=== PATIENT | male | born 1985 | race Caucasian/White ===

== ENCOUNTER 2016-12-21 21:37 | Emergency (ER) | payer OTHER ==
[2016-12-21 21:49] VITALS: BP 129/67
[2016-12-21] MEDS ORDERED: Albuterol HFA INHALER* 8 gm MDI INH ONE (22:11)
--- NOTE | 2016-12-21 22:11 | UC ---
Abdominal Pain Male HPI - HPI Summary HPI Summary: 31 yo male with a 2 day hx of n/v/d has been wheezing out of MDI no f/c no abd pain except for cramps prior to diarrhea and vomiting - History of Current Complaint Chief Complaint: UCGeneralIllness Stated Complaint: VOMITING Time Seen by Provider: 12/21/16 21:58 Hx Obtained From: Patient Onset/Duration: Gradual Onset, Lasting Days Timing: Constant Severity Initially: Mild Severity Currently: Moderate Pain Intensity: 2 Pain Scale Used: 0-10 Numeric Location: Diffuse Character: Cramping Alleviating Factor(s): Spontaneous Resolution Associated Signs And Symptoms: Positive: Nausea, Vomiting, Diarrhea - Allergies/Home Medications Allergies/Adverse Reactions: Allergies Allergy/AdvReac Type Severity Reaction Status Date / Time No Known Allergies Allergy Verified 12/21/16 21:49 Home Medications: Home Medications Bp Medicine DAILY 12/21/16 [History] lamoTRIgine TAB(*) [LaMICtal TAB(*)] 100 mg PO BEDTIME 12/21/16 [History Confirmed 12/21/16] PMH/Surg Hx/FS Hx/Imm Hx Endocrine History Of: Denies: Diabetes, Thyroid Disease Cardiovascular History Of: Reports: Cardiac Disorders - heart murmur at age 16 Denies: Hypertension Respiratory History Of: Reports: Asthma, Bronchitis - 03/15 Denies: COPD GI/ History Of: Denies: Ulcer Psychological History Of: Reports: Anxiety, Depression - Surgical History Surgical History: None - Family History Known Family History: Positive: Hypertension, Other - cancer - Social History Alcohol Use: None Alcohol Amount: not since march 31, 2016 Substance Use Type: Marijuana Substance Use Comment - Amount & Last Used: not since 03/31/2016 Smoking Status (MU): Current Every Day Smoker Type: Cigarettes Amount Used/How Often: 1 ppd Household Exposure Type: Cigarettes - Immunization History Most Recent Influenza Vaccination: no Most Recent Tetanus Shot: up to date Most Recent Pneumonia Vaccination: no Review of Systems Constitutional: Negative Skin: Negative Eyes: Negative ENT: Negative Respiratory: Cough Cardiovascular: Negative Gastrointestinal: Negative Genitourinary: Negative Motor: Negative Neurovascular: Negative Musculoskeletal: Negative Neurological: Negative Psychological: Negative All Other Systems Reviewed And Are Negative: Yes Physical Exam Triage Information Reviewed: Yes Appearance: Well-Appearing, No Pain Distress, Well-Nourished Vital Signs: Initial Vital Signs Temp 98.9 F 12/21/16 21:43 Pulse 71 12/21/16 21:43 Resp 16 12/21/16 21:43 BP 129/67 12/21/16 21:43 Pulse Ox 98 12/21/16 21:43 Eyes: Positive: Conjunctiva Clear ENT: Positive: Hearing grossly normal, Pharynx normal. Negative: Nasal congestion, Nasal drainage, Tonsillar exudate Neck: Positive: Supple, Nontender Respiratory: Positive: Lungs clear, Normal breath sounds, No respiratory distress Cardiovascular: Positive: RRR, No Murmur Abdomen Description: Positive: Nontender, No Organomegaly, Soft Bowel Sounds: Positive: Present Musculoskeletal: Positive: ROM Intact, No Edema Neurological Exam: Normal Neurological: Positive: Alert Psychological Exam: Normal Skin Exam: Normal Abd Pain Male Course/Dx - Differential Dx/Clinical Impression Provider Diagnoses: gastroenteritis. smoker. asthma by history Discharge - Discharge Plan Condition: Stable Disposition: HOME Prescriptions: Ondansetron TAB* [Zofran Tab*] 4 mg PO Q6H PRN #10 tab PRN Reason: Nausea Patient Education Materials: Gastroenteritis (ED) Referrals: Eulogio Owens MD [Primary Care Provider] - 2 Days (if not better) Additional Instructions: recheck for new or worsening symptoms
[2016-12-21] MEDS ORDERED: Ondansetron ODT TAB* 4 MG PO ONE (22:12)
== END 2016-12-21 22:24 | disposition home or self-care (01) ==
LOC: UCCORT 21:37
DX: K52.9 Noninfective gastroenteritis and colitis, unspecified (principal); F12.90 Cannabis use, unspecified, uncomplicated; F17.210 Nicotine dependence, cigarettes, uncomplicated
CPT/HCPCS: 99212; A9270-GY; G0463

== ENCOUNTER 2017-02-21 19:01 | Emergency (ER) | payer OTHER ==
[2017-02-21 19:42] VITALS: BP 138/78
--- NOTE | 2017-02-21 21:14 | UC ---
UC General HPI - HPI Summary HPI Summary: The patient comes in today for: 1. Medication refill Onset: one year Palliative/provocative: Anxiety is helped with these medications. Quality: Anxiety. Region: [place] [place] Severity: 03/09 Time: Comes and goes. Associated symptoms: Event: Gabapentin and Seroquel taken for anxiety and insomnia. He is taking 800 mg qid and Seroquel 200 qhs. He has been on these medications for about a year. These were prescribed initially about last year by Rose Johnson MACHINE T[employer] OPERATOR at the [facility]. * - History of Current Complaint Chief Complaint: UCMedRefill Stated Complaint: MED REFILL Time Seen by Provider: 02/21/17 21:06 Hx Obtained From: Patient - Allergy/Home Medications Allergies/Adverse Reactions: Allergies Allergy/AdvReac Type Severity Reaction Status Date / Time No Known Allergies Allergy Verified 02/21/17 19:42 Home Medications: Home Medications QUEtiapine XR TAB* [Seroquel Xr TAB*] 200 mg PO BEDTIME 02/21/17 [History Confirmed 02/21/17] PMH/Surg Hx/FS Hx/Imm Hx Previously Healthy: No Endocrine History Of: Denies: Diabetes, Thyroid Disease, Hyperthyroidism, Hypothyroidism, Dyslipidemia Cardiovascular History Of: Reports: Cardiac Disorders - heart murmur at age 16 Denies: Hypertension, Pacemaker/ICD, Myocardial Infarction, Congestive Heart Failure, Atrial Fibrillation, Deep Vein Thrombosis, Bleeding Disorders Respiratory History Of: Reports: Asthma Denies: COPD, Bronchitis, Pneumonia, Pulmonary Embolism GI/ History Of: Denies: Gastroesophageal Reflux, Ulcer, Gastrointestinal Bleed, Gall Bladder Disease, Kidney Stones, Diverticulitis, Renal Disease, Urosepsis Neurological History Of: Denies: TIA, CVA, Dementia, Seizures, Migraine Psychological History Of: Reports: Anxiety, Depression - HE states that he is not suicidal nor homicidal. Denies: Bipolar Disorder, Schizophrenia, Post Traumatic Stress Disorder Cancer History Of: Denies: Lung Cancer, Colorectal Cancer, Breast Cancer, Prostate Cancer, Cervical Cancer Other History Of: Negative For: HIV, Hepatitis B, Hepatitis C, Anticoagulant Therapy - Surgical History Surgical History: None - Family History Known Family History: Positive: Hypertension, Diabetes, Other - cancer Negative: Cardiac Disease - Social History Occupation: Unemployed Alcohol Use: Weekly Alcohol Amount: 3 beers Substance Use Type: None Substance Use Comment - Amount & Last Used: not since 03/31/2016 Smoking Status (MU): Current Every Day Smoker Type: Cigarettes Amount Used/How Often: 1 ppd Household Exposure Type: Cigarettes - Immunization History Most Recent Influenza Vaccination: no Most Recent Tetanus Shot: up to date Most Recent Pneumonia Vaccination: no Review of Systems Constitutional: Negative Skin: Negative Eyes: Negative ENT: Negative Respiratory: Negative Cardiovascular: Negative Gastrointestinal: Negative Genitourinary: Negative Musculoskeletal: Negative Neurological: Negative All Other Systems Reviewed And Are Negative: Yes Physical Exam Triage Information Reviewed: Yes Appearance: Well-Appearing, No Pain Distress, Well-Nourished, Other: - Slightly anxious looking. Slight pressured speech. Vital Signs: Initial Vital Signs Temp 98.4 F 02/21/17 19:35 Pulse 64 02/21/17 19:35 Resp 16 02/21/17 19:35 BP 138/78 02/21/17 19:35 Pulse Ox 98 02/21/17 19:35 Vital Signs Reviewed: Yes Eyes: Positive: Conjunctiva Clear. Negative: Discharge ENT: Positive: Hearing grossly normal. Negative: Pharyngeal erythema, Nasal congestion, Nasal drainage, TM bulging, TM dull, TM red, Tonsillar swelling, Tonsillar exudate Dental: Negative: Gross Decay/Caries @, Dental Fracture @ Neck: Positive: Supple, Nontender, No Lymphadenopathy. Negative: Nuchal Rigidity Respiratory: Positive: Lungs clear, No respiratory distress, No accessory muscle use. Negative: Crackles, Wheezing Cardiovascular: Positive: RRR, No Murmur Abdomen Description: Positive: Nontender, No Organomegaly, Soft. Negative: Distended, Guarding Musculoskeletal: Positive: Strength Intact, ROM Intact, No Edema Neurological: Positive: Alert, Muscle Tone Normal Psychological: Positive: Normal Response To Family, Age Appropriate Behavior, Consolable Skin: Negative: rashes, breakdown Course/Dx - Differential Dx - Multi-Symptom Provider Diagnoses: Anxiety. Depression Discharge - Discharge Plan Condition: Stable Disposition: HOME Patient Education Materials: Anxiety (ED), Depression (ED) Referrals: Eulogio Owens MD [Primary Care Provider] - 1 Week () Additional Instructions: Please see your primary care provider or your mental health care provider for a refill of your medications--preferrably your mental health care provider. If you are going go come back here for a renewal to tie you over until you can establish with your mental health care provider, come back when the mental health office is open so that they can be consulted.
== END 2017-02-21 21:42 | disposition home or self-care (01) ==
LOC: UCCORT 19:01
DX: F41.8 Other specified anxiety disorders (principal); Z76.0 Encounter for issue of repeat prescription; J45.909 Unspecified asthma, uncomplicated; F17.210 Nicotine dependence, cigarettes, uncomplicated
CPT/HCPCS: 99212; G0463

== ENCOUNTER 2017-05-11 07:18 | Emergency (ER) | payer OTHER ==
[2017-05-11 07:33] VITALS: BP 130/84
--- NOTE | 2017-05-11 07:35 | UC ---
Abdominal Pain Male HPI - HPI Summary HPI Summary: 31 YEAR OLD FEMALE PRESENTS WITH COMPLAINS OF NAUSEA/VOMITING AND ABDOMINAL CRAMPS. - History of Current Complaint Chief Complaint: UCGeneralIllness Stated Complaint: VOMITING Time Seen by Provider: 05/11/17 07:35 - Allergies/Home Medications Allergies/Adverse Reactions: Allergies Allergy/AdvReac Type Severity Reaction Status Date / Time No Known Allergies Allergy Verified 02/21/17 19:42 PMH/Surg Hx/FS Hx/Imm Hx Other History Of: Negative For: HIV, Hepatitis B, Hepatitis C, Anticoagulant Therapy - Surgical History Surgical History: None - Family History Known Family History: Positive: Hypertension, Diabetes, Other - cancer Negative: Cardiac Disease - Social History Alcohol Use: None Alcohol Amount: 3 beers Substance Use Type: None Substance Use Comment - Amount & Last Used: not since 03/31/2016 Smoking Status (MU): Current Every Day Smoker Type: Cigarettes Amount Used/How Often: 1 ppd Household Exposure Type: Cigarettes - Immunization History Most Recent Influenza Vaccination: no Most Recent Tetanus Shot: up to date Most Recent Pneumonia Vaccination: no Review of Systems Constitutional: Negative Skin: Negative Eyes: Negative ENT: Negative Respiratory: Negative Cardiovascular: Negative Gastrointestinal: Abdominal Pain, Vomiting, Diarrhea, Nausea Genitourinary: Negative Motor: Negative Neurovascular: Negative Musculoskeletal: Negative Neurological: Negative Psychological: Negative All Other Systems Reviewed And Are Negative: Yes Physical Exam Triage Information Reviewed: Yes Vital Signs: Initial Vital Signs Temp 36.4 C 05/11/17 07:29 Pulse 67 05/11/17 07:29 Resp 18 05/11/17 07:29 BP 130/84 05/11/17 07:29 Pulse Ox 100 05/11/17 07:29 Eye Exam: Normal ENT Exam: Normal Dental Exam: Normal Neck exam: Normal Neck: Positive: 1 Respiratory Exam: Normal Cardiovascular Exam: Normal Abdominal Exam: Normal Musculoskeletal Exam: Normal Neurological Exam: Normal Psychological Exam: Normal Skin Exam: Normal Abd Pain Male Course/Dx - Differential Dx/Clinical Impression Provider Diagnoses: NAUSEA. VOMITTING Discharge - Discharge Plan Condition: Stable Disposition: HOME Prescriptions: Dicyclomine CAP* [Bentyl CAP*] 10 mg PO TID PRN #30 cap PRN Reason: Pain - Abdominal Patient Education Materials: Acute Nausea and Vomiting (ED) Forms: *Work Release Referrals: Eulogio Owens MD [Primary Care Provider] - If Needed
== END 2017-05-11 08:11 | disposition home or self-care (01) ==
LOC: UCEAST 07:18
DX: R11.2 Nausea with vomiting, unspecified (principal); R10.9 Unspecified abdominal pain; F17.210 Nicotine dependence, cigarettes, uncomplicated
CPT/HCPCS: 99212; G0463

== ENCOUNTER 2017-06-06 18:47 | Emergency (ER) | payer OTHER ==
[2017-06-06 19:05] VITALS: BP 145/87
[2017-06-06 19:11] LABS: Urine Bilirubin Negative (Negative); Urine Glucose Negative (Negative); Urine Nitrite Negative (Negative)
[2017-06-06 19:25] LABS: Benzodiazepine Urine Screen None Detected (None Detect)
[2017-06-06] MEDS ORDERED: LORazepam TAB(*) 1 MG PO ONE (19:33)
[2017-06-06] MEDS ORDERED: Nicotine Inhaler* 10 MG AMP INH ONE (19:33)
[2017-06-06] MEDS ORDERED: Mouth Piece, Nicotine* 1 EACH CARTRIDGE ONE (19:51)
[2017-06-06 20:07] LABS: Hematocrit 46 % (42-52); Hemoglobin 15.4 g/dl (14.0-18.0); Mean Corpuscular HGB Conc 34 g/dl (31-36); Mean Corpuscular Hemoglobin 29 pg (27-31); Mean Corpuscular Volume 87 fL (80-94); Mean Platelet Volume 9 um3 (7.4-10.4); Red Blood Count 5.27 10^6/ul (4.0-5.4); Red Cell Distribution Width 12 % (10.5-15); White Blood Count 6.7 10^3/ul (3.5-10.8)
[2017-06-06 20:22] LABS: ALT 16 U/L (7-52); AST 19 U/L (13-39); Albumin 4.9 g/dL (3.2-5.2); Alkaline Phosphatase 43 U/L (34-104); Anion Gap 8 mmol/L (2-11); BUN/Creatinine Ratio 7.7 (8-20); Blood Urea Nitrogen 7 mg/dL (6-24); CO2 Carbon Dioxide 23 mmol/L (22-32); Chloride 112 mmol/L (101-111); EGFR Non-African American 97.2 (>60); Globulin 2.5 g/dL (2-4); Glucose 103 mg/dL (70-100); Potassium 4.6 mmol/L (3.5-5.0); Sodium 143 mmol/L (133-145); Total Protein 7.4 g/dL (6.4-8.9)
[2017-06-06 20:40] LABS: Acetaminophen < 15 mcg/mL; Alcohol 221 mg/dL (<10); Salicylate < 2.50 mg/dL (<30)
[2017-06-06] MEDS ORDERED: Gabapentin CAP(*) 400 MG PO ONE (20:43)
[2017-06-06 20:50] LABS: TSH (Thyroid Stimulating Horm) 0.65 mcIU/mL (0.34-5.60)
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
== END 2017-06-06 21:55 | disposition home or self-care (01) ==
LOC: ED 18:47
DX: F19.94 Other psychoactive substance use, unspecified with psychoactive substance-induced mood disorder (principal)
CPT/HCPCS: 36415; 80053; 80307; 80320; 80329; 81003; 84443; 85025; 99284; A9270-GY; G0480

== ENCOUNTER 2017-07-06 13:09 | Emergency (ER) | payer OTHER ==
[2017-07-06 14:07] VITALS: BP 138/76
--- NOTE | 2017-07-06 14:23 | UC ---
Throat Pain/Nasal Oh HPI - HPI Summary HPI Summary: Sore throat, vomiting and fever. No rashes. No blood in stool or vomitus. no coffee ground emesis. No abd pain. - History of Current Complaint Chief Complaint: UCRespiratory Stated Complaint: FEVER SORE THROAT Time Seen by Provider: 07/06/17 13:15 Hx Obtained From: Patient Onset/Duration: Gradual Onset, Lasting Hours Severity: Moderate Pain Intensity: 2 Pain Scale Used: 0-10 Numeric Cough: None Associated Signs & Symptoms: Positive: Dysphagia, Fever, Vomiting. Negative: Wheezing, Hoarseness, Sinus Discomfort, Nasal Discharge - Epiglottits Risk Factors Epiglottis Risk Factors: Negative - Allergies/Home Medications Allergies/Adverse Reactions: Allergies Allergy/AdvReac Type Severity Reaction Status Date / Time No Known Allergies Allergy Verified 07/06/17 13:43 Home Medications: Home Medications Atomoxetine (NF) [Strattera (NF)] 80 mg PO DAILY 07/06/17 [History Confirmed 04/16] Gabapentin [Neurontin 800 mg tab] 800 mg PO TID 07/06/17 [History Confirmed 04/16] PMH/Surg Hx/FS Hx/Imm Hx Previously Healthy: No - mental health disease. Other History Of: Negative For: HIV, Hepatitis B, Hepatitis C, Anticoagulant Therapy - Surgical History Surgical History: None - Family History Known Family History: Positive: Hypertension, Diabetes, Other - cancer Negative: Cardiac Disease - Social History Lives: With Family Alcohol Use: Rare Alcohol Amount: 3 beers Substance Use Type: None Substance Use Comment - Amount & Last Used: not since 03/31/2016 Smoking Status (MU): Current Every Day Smoker Type: Cigarettes Amount Used/How Often: 1 ppd Household Exposure Type: Cigarettes - Immunization History Most Recent Influenza Vaccination: HAS NEVER TAKEN Most Recent Tetanus Shot: up to date Most Recent Pneumonia Vaccination: no Review of Systems ENT: Sore Throat Gastrointestinal: Vomiting All Other Systems Reviewed And Are Negative: Yes Physical Exam Triage Information Reviewed: Yes Appearance: Well-Appearing, No Pain Distress, Well-Nourished Vital Signs: Initial Vital Signs Temp 98.9 F 07/06/17 13:45 Pulse 67 07/06/17 13:45 Resp 16 07/06/17 13:45 BP 138/76 07/06/17 13:45 Pulse Ox 99 09/06/17 13:45 Vital Signs Reviewed: Yes Eye Exam: Normal ENT: Positive: Pharyngeal erythema, TMs normal. Negative: Tonsillar swelling, Tonsillar exudate, Trismus Neck exam: Normal Respiratory Exam: Normal Cardiovascular Exam: Normal Abdominal Exam: Normal Musculoskeletal Exam: Normal Neurological Exam: Normal Psychological Exam: Normal Skin Exam: Normal Throat Pain/Nasal Course/Dx - Course Course Of Treatment: supportive care described in detail. zofran and BRAT diet. He agrees to return for any worsening. - Differential Dx/Diagnosis Differential Diagnosis/HQI/PQRI: Epiglottitis, Foreign Body, Influenza, Laryngitis, Souleymane's Angina, Mononucleosis, Otitis Media, Peritonsillar Abscess , Pharyngitis, Tonsillitis, URI Provider Diagnoses: vomiting. gastritis. Discharge - Discharge Plan Condition: Good Disposition: HOME Prescriptions: Ondansetron ODT TAB* [Zofran 4 MG Odt TAB*] 4 mg PO Q8H PRN #12 tab.odt PRN Reason: Nausea Patient Education Materials: Acute Nausea and Vomiting (ED) Referrals: Eulogio Owens MD [Primary Care Provider] - If Needed Additional Instructions: simple diet as we described and return for any worsening.
== END 2017-07-06 14:17 | disposition home or self-care (01) ==
LOC: UCCORT 13:09
DX: R11.10 Vomiting, unspecified (principal); K29.70 Gastritis, unspecified, without bleeding; F17.210 Nicotine dependence, cigarettes, uncomplicated
CPT/HCPCS: 87651; 99211; G0463

== ENCOUNTER 2017-08-03 16:04 | Emergency (ER) | payer OTHER ==
--- NOTE | 2017-08-03 17:16 | UC ---
FLU HPI - HPI Summary HPI Summary: Patient presents to the with CC of body aches, fatigue, chest congestion and cough. Denies fevers, sweats but endorses chills. Denies urinary symptoms, back pain or abdominal pain. He endorses sick contacts. He has been taking nyquil with relief of symptoms during the night, but they will return during the day. Symptoms began 4 days ago, are worsening. Cough is without production but he is feeling chest "rumbling." - History of Current Complaint Chief Complaint: UCRespiratory Stated Complaint: FLU LIKE SXS Time Seen by Provider: 08/03/17 16:36 Hx Obtained From: Patient Onset/Duration: Sudden Onset Severity Currently: Moderate Severity Initially: Moderate Pain Intensity: 0 Pain Scale Used: 0-10 Numeric Associated Signs & Symptoms: Positive: Cough, Sore Throat, Nasal Congestion - Allergy/Home Medications Allergies/Adverse Reactions: Allergies Allergy/AdvReac Type Severity Reaction Status Date / Time No Known Allergies Allergy Verified 08/03/17 16:17 Home Medications: Home Medications Albuterol HFA INHALER* [Ventolin HFA Inhaler*] 2 puff INH Q6H PRN 08/03/17 [ History Confirmed 08/03/17] Dextromethorphan-Phenylephrine [Day Time Multi-Symptom Co] 1 cap PO PRN [History] PMH/Surg Hx/FS Hx/Imm Hx Previously Healthy: Yes Other History Of: Negative For: HIV, Hepatitis B, Hepatitis C, Anticoagulant Therapy - Surgical History Surgical History: None - Family History Known Family History: Positive: Hypertension, Diabetes, Other - cancer Negative: Cardiac Disease - Social History Occupation: Employed Full-time Lives: With Family Alcohol Use: Occasionally Alcohol Amount: 3 beers Substance Use Type: None Substance Use Comment - Amount & Last Used: not since 03/31/2016 Smoking Status (MU): Current Every Day Smoker Type: Cigarettes Amount Used/How Often: 1/2 PPD Household Exposure Type: Cigarettes - Immunization History Most Recent Influenza Vaccination: HAS NEVER TAKEN Most Recent Tetanus Shot: up to date Most Recent Pneumonia Vaccination: no Review of Systems Constitutional: Negative Skin: Negative ENT: Sinus Congestion, Sinus Pain/Tenderness Respiratory: Cough Cardiovascular: Negative Motor: Negative Neurovascular: Negative Musculoskeletal: Negative Neurological: Negative Is Patient Immunocompromised?: No All Other Systems Reviewed And Are Negative: Yes Physical Exam Triage Information Reviewed: Yes Appearance: Well-Appearing, Well-Nourished Vital Signs: Initial Vital Signs Temp 97.8 F 08/03/17 16:18 Pulse 67 08/03/17 16:18 Resp 18 08/03/17 16:18 BP 123/90 08/03/17 16:18 Pulse Ox 98 08/03/17 16:18 Vital Signs Reviewed: Yes Eye Exam: Normal Eyes: Positive: Conjunctiva Clear Neck exam: Normal Neck: Positive: Supple, No Lymphadenopathy Respiratory Exam: Normal Respiratory: Positive: Chest non-tender, Lungs clear, Normal breath sounds, No respiratory distress, No accessory muscle use Cardiovascular Exam: Normal Cardiovascular: Positive: RRR Musculoskeletal Exam: Normal Musculoskeletal: Positive: Strength Intact Neurological Exam: Normal Neurological: Positive: Alert Psychological Exam: Normal Psychological: Positive: Normal Response To Family Skin Exam: Normal Flu Course/Dx - Course Course Of Treatment: Patient evaluated for flu like symptoms. He denies diffuse muscle aches. He is given mucinex, tessalon for cough and flonase. He is encouraged to return if symptoms worsen or fail to improve in 1 week. Patient agrees. He is given supportive treatment for viral syndrome. He is OK with plan and discharge. Return precautions given. VS stable. Lungs CTA, no pharyngeal erythema and no LAD on physical exam. Denies fevers, sweats, chills or other signs of a systemic illness. Patient OK with discharge. - Differential Dx/Diagnosis Differential Diagnosis/HQI/PQRI: Bronchitis, Upper Respiratory Infection Provider Diagnoses: Upper Respiratory Infection Discharge - Discharge Plan Condition: Stable Disposition: HOME Prescriptions: Benzonatate CAP* [Tessalon CAP*] 100 mg PO TID #21 cap Fluticasone NASAL SPRAY 50MCG* [Flonase NASAL SPRAY 50MCG*] 2 spray BOTH NARES DAILY #1 btl guaiFENesin ER TAB [Mucinex*] 600 mg PO BID #12 tab.er Patient Education Materials: Upper Respiratory Infection (ED) Referrals: Eulogio Owens MD [Primary Care Provider] - Additional Instructions: Humidifier in the home will help. Tylenol for discomfort. Take all medications as directed. Symptoms should resolve in 1-3 weeks. If symptoms become worse, please come back to or go to the ED. Honey and lemon hot tea Rest plenty of fluids.
[2017-08-03] MEDS ORDERED: Naproxen TAB* 250 MG PO ONE (17:50)
[2017-08-03 17:51] VITALS: BP 123/90
== END 2017-08-03 16:55 | disposition home or self-care (01) ==
LOC: UCCORT 16:04
DX: J06.9 Acute upper respiratory infection, unspecified (principal)
CPT/HCPCS: 99212; G0463

== ENCOUNTER 2019-02-18 16:34 | Emergency (ER) | payer OTHER ==
[2019-02-18 17:11] VITALS: BP 123/72
--- NOTE | 2019-02-18 17:31 | ED ---
GI/ HPI - HPI Summary HPI Summary: 33yr old male with no prior GI history, no antibiotic use recently. He presents here with constipation for 2-3 days last weekend, and then five days ago had a hard large BM. This has been followed by loose stools for two days, then normal stools for a couple days and then loose stool again the past day and a half. He has no abdominal pain, no fever, no chills. No weight loss. His mom has chron's. He has not traveled. - History of Current Complaint Chief Complaint: UCGI Time Seen by Provider: 02/18/19 17:04 Stated Complaint: DIARRHEA, STOMACH ACHE x2 DAYS Pain Intensity: 0 - Allergy/Home Medications Allergies/Adverse Reactions: Allergies Allergy/AdvReac Type Severity Reaction Status Date / Time avoids ETOH Allergy Abuse hx Uncoded 02/18/19 17:12 PMH/Surg Hx/FS Hx/Imm Hx Endocrine/Hematology History: Denies: Hx Anticoagulant Therapy, Hx Diabetes, Hx Thyroid Disease Cardiovascular History: Denies: Hx Congestive Heart Failure, Hx Deep Vein Thrombosis, Hx Hypertension , Hx Myocardial Infarction, Hx Pacemaker/ICD Respiratory History: Reports: Hx Asthma Denies: Hx Chronic Obstructive Pulmonary Disease (COPD), Hx Lung Cancer, Hx Pneumonia, Hx Pulmonary Embolism GI History: Denies: Hx Gall Bladder Disease, Hx Gastrointestinal Bleed, Hx Ulcer, Hx Urosepsis History: Denies: Hx Kidney Stones, Hx Renal Disease Neurological History: Denies: Hx Dementia, Hx Migraine, Hx Seizures, Hx Transient Ischemic Attacks (TIA) Psychiatric History: Reports: Hx Anxiety, Hx Depression - HE states that he is not suicidal nor homicidal. Denies: Hx Schizophrenia, Hx Bipolar Disorder Infectious Disease History: No Infectious Disease History: Denies: Hx Clostridium Difficile, Hx Hepatitis, Hx Human Immunodeficiency Virus (HIV), Hx of Known/Suspected MRSA, Hx Shingles, Hx Tuberculosis, Hx Known/ Suspected VRE, Hx Known/Suspected VRSA, History Other Infectious Disease, Traveled Outside the [place] in Last 30 Days - Family History Known Family History: Positive: Hypertension, Diabetes, Other - cancer Negative: Cardiac Disease - Social History Alcohol Use: None Alcohol Amount: sober since 2016 Substance Use Type: Reports: None Substance Use Comment - Amount & Last Used: not since 03/31/2016 Smoking Status (MU): Heavy Every Day Tobacco Smoker Type: Cigarettes Amount Used/How Often: 1/2 PPD Review of Systems Constitutional: Negative Positive: Diarrhea All Other Systems Reviewed And Are Negative: Yes Physical Exam Triage Information Reviewed: Yes Vital Signs On Initial Exam: Initial Vitals Temp Pulse Resp BP Pulse Ox 98.2 F 66 18 123/72 98 02/18/19 16:58 02/18/19 16:58 02/18/19 16:58 02/18/19 16:58 02/18/19 16:58 Vital Signs Reviewed: Yes Appearance: Positive: Well-Appearing, No Pain Distress Skin: Positive: Warm, Skin Color Reflects Adequate Perfusion Head/Face: Positive: Normal Head/Face Inspection Eyes: Positive: EOMI ENT: Positive: Normal ENT inspection Neck: Positive: Nontender Respiratory/Lung Sounds: Positive: Clear to Auscultation, Breath Sounds Present Cardiovascular: Positive: RRR. Negative: Murmur Abdomen Description: Positive: Nontender, Soft. Negative: Distended Musculoskeletal: Positive: Strength/ROM Intact Neurological: Positive: Sensory/Motor Intact, Alert, Oriented to Person Place, Time, CN Intact II-III Psychiatric: Positive: Normal Diagnostics - Vital Signs Vital Signs Temp Pulse Resp BP Pulse Ox 02/18/19 16:58 98.2 F 66 18 123/72 98 - Laboratory Lab Statement: Any lab studies that have been ordered have been reviewed, and results considered in the medical decision making process. GIGU Course/Dx - Course Course Of Treatment: 33 yr old with some diarrhea - Diagnoses Provider Diagnoses: Diarrhea Discharge - Sign-Out/Discharge Documenting (check all that apply): Patient Departure All imaging exams completed and their final reports reviewed: No Studies - Discharge Plan Condition: Good Disposition: HOME Patient Education Materials: Acute Diarrhea (ED) Referrals: No Primary Care Phys,NOPCP [Primary Care Provider] - Harsha Celis DO [Doctor of Osteopathy] - 2 Days [facility] [Outside] - 2 Days - Billing Disposition and Condition Condition: GOOD Disposition: Home
== END 2019-02-18 17:41 | disposition home or self-care (01) ==
LOC: UCCORT 16:34
DX: R19.7 Diarrhea, unspecified (principal); F17.210 Nicotine dependence, cigarettes, uncomplicated; Z87.09 Personal history of other diseases of the respiratory system
CPT/HCPCS: 99211; G0463

== ENCOUNTER 2019-03-15 18:59 | Emergency (ER) | payer OTHER ==
[2019-03-15 19:42] VITALS: BP 93/76
--- NOTE | 2019-03-15 20:00 | ED ---
GI/ HPI - HPI Summary HPI Summary: 33 yr old male with three days of loose stool. He has had 3-4 loose stools each day. SOme feeling of chills. Symptoms are moderate. NO fever. No blood in stool. No NV. No abdominal pain. No other complaints. No antibiotic use, no travel history. - History of Current Complaint Chief Complaint: UCGeneralIllness Time Seen by Provider: 03/15/19 19:47 Stated Complaint: ACHY BODY, COUGH, HEADACHE Pain Intensity: 0 - Allergy/Home Medications Allergies/Adverse Reactions: Allergies Allergy/AdvReac Type Severity Reaction Status Date / Time avoids ETOH Allergy Abuse hx Uncoded 03/15/19 19:42 PMH/Surg Hx/FS Hx/Imm Hx Endocrine/Hematology History: Denies: Hx Anticoagulant Therapy, Hx Diabetes, Hx Thyroid Disease Cardiovascular History: Denies: Hx Congestive Heart Failure, Hx Deep Vein Thrombosis, Hx Hypertension , Hx Myocardial Infarction, Hx Pacemaker/ICD Respiratory History: Reports: Hx Asthma Denies: Hx Chronic Obstructive Pulmonary Disease (COPD), Hx Lung Cancer, Hx Pneumonia, Hx Pulmonary Embolism GI History: Denies: Hx Gall Bladder Disease, Hx Gastrointestinal Bleed, Hx Ulcer, Hx Urosepsis History: Denies: Hx Kidney Stones, Hx Renal Disease Neurological History: Denies: Hx Dementia, Hx Migraine, Hx Seizures, Hx Transient Ischemic Attacks (TIA) Psychiatric History: Reports: Hx Anxiety, Hx Depression - HE states that he is not suicidal nor homicidal. Denies: Hx Schizophrenia, Hx Bipolar Disorder Infectious Disease History: No Infectious Disease History: Denies: Hx Clostridium Difficile, Hx Hepatitis, Hx Human Immunodeficiency Virus (HIV), Hx of Known/Suspected MRSA, Hx Shingles, Hx Tuberculosis, Hx Known/ Suspected VRE, Hx Known/Suspected VRSA, History Other Infectious Disease, Traveled Outside the [place] in Last 30 Days - Family History Known Family History: Positive: Hypertension, Diabetes, Other - cancer Negative: Cardiac Disease - Social History Occupation: Employed Full-time Alcohol Use: None Alcohol Amount: sober since 2017 Substance Use Type: Reports: None Substance Use Comment - Amount & Last Used: not since 03/31/2016 Smoking Status (MU): Heavy Every Day Tobacco Smoker Type: Cigarettes Amount Used/How Often: 1/2 PPD Review of Systems Positive: Chills. Negative: Fever Positive: Diarrhea All Other Systems Reviewed And Are Negative: Yes Physical Exam Triage Information Reviewed: Yes Vital Signs On Initial Exam: Initial Vitals Temp Pulse Resp BP Pulse Ox 98.6 F 69 16 93/76 98 03/15/19 19:38 03/15/19 19:38 03/15/19 19:38 03/15/19 19:38 03/15/19 19:38 Vital Signs Reviewed: Yes Appearance: Positive: Well-Appearing, No Pain Distress Skin: Positive: Warm, Skin Color Reflects Adequate Perfusion Head/Face: Positive: Normal Head/Face Inspection Eyes: Positive: EOMI, HARRY ENT: Positive: Pharynx normal Respiratory/Lung Sounds: Positive: Clear to Auscultation, Breath Sounds Present Cardiovascular: Positive: RRR. Negative: Murmur, Rub Abdomen Description: Positive: Nontender. Negative: Distended Musculoskeletal: Positive: Strength/ROM Intact Neurological: Positive: Sensory/Motor Intact, Alert, Oriented to Person Place, Time, CN Intact II-III Diagnostics - Vital Signs Vital Signs Temp Pulse Resp BP Pulse Ox 03/15/19 19:38 98.6 F 69 16 93/76 98 - Laboratory Lab Statement: Any lab studies that have been ordered have been reviewed, and results considered in the medical decision making process. GIGU Course/Dx - Course Course Of Treatment: 33 yr old with loose stool. FU with PMD. IF loose stool more than 6/7 days he will return for stool stesting. - Diagnoses Provider Diagnoses: Diarrhea Discharge - Sign-Out/Discharge Documenting (check all that apply): Patient Departure All imaging exams completed and their final reports reviewed: No Studies - Discharge Plan Condition: Good Disposition: HOME Patient Education Materials: Gastroenteritis (ED) Forms: *Work Release Referrals: No Primary Care Phys,NOPCP [Primary Care Provider] - [facility] [facility] [place] - 3 Days - Billing Disposition and Condition Condition: GOOD Disposition: Home
== END 2019-03-15 20:02 | disposition home or self-care (01) ==
LOC: UCCORT 18:59
DX: R19.7 Diarrhea, unspecified (principal); J45.909 Unspecified asthma, uncomplicated; F17.210 Nicotine dependence, cigarettes, uncomplicated
CPT/HCPCS: 99211; G0463